=== PATIENT | female | born 1970 | race Caucasian/White ===

== ENCOUNTER 2020-05-15 11:28 | Emergency (ER) | payer OTHER ==
[2020-05-15 12:51] LABS: HEMOGLOBIN 14.9 gm/dl (12.3-15.3); RED BLOOD COUNT 5.65 M/UL (4.00-5.10); WHITE BLOOD COUNT 7.1 K/UL (4.5-11.0)
[2020-05-15 13:22] LABS: BUN/CREATININE RATIO 14 (0-10)
[2020-05-15] MEDS ORDERED: CARAFATE1 GM PO (15:52)
== END 2020-05-15 15:33 | disposition home or self-care (01) ==
LOC: ER1 11:28
PROVIDERS: Physician Assistant
DX: R07.89 Other chest pain (principal); S90.31XA Contusion of right foot, initial encounter; R22.42 Localized swelling, mass and lump, left lower limb; R06.02 Shortness of breath; E11.9 Type 2 diabetes mellitus without complications; Z88.6 Allergy status to analgesic agent; Z88.8 Allergy status to other drugs, medicaments and biological substances; X58.XXXA Exposure to other specified factors, initial encounter
CPT/HCPCS: 71045; 80053; 82550; 82553; 83690; 83874; 84484; 85025; 85379; 93005; 99285